=== PATIENT | female | born 1955 ===

== ENCOUNTER 2019-07-20 05:42 | Day surgery (SDC) | payer OTHER ==
[~2019-07-20 05:42] MED LIST: CARVEDILOL25 MG PO; DAFLONEX-XL 11300 MG PO; LYRICA200 MG PO; PLAQUENIL PO; TORADOL60 MG IM; VALSARTAN80 MG PO; [UNRECOGNIZED DRUG - OTHER] PO
== END 2019-07-20 11:28 | disposition home or self-care (01) ==
LOC: CIR.AMB 05:42 → ADM 09:00 → CIR.AMB 11:28
DX: M77.11 Lateral epicondylitis, right elbow (principal)